=== PATIENT | female | born 1950 | race Two or more races ===

== ENCOUNTER 2023-01-07 08:55 | Day surgery (SDC) | payer MEDICARE, OTHER ==
[2023-01-07] VITALS (9 sets, daily range): BP systolic 165–207; BP diastolic 63–88
[~2023-01-07] VITALS: Ht 152.4 cm; Wt 56.4 kg
[2023-01-07 10:03] LABS: BASOPHILS % (AUTO) 0.3 % (0-1); EOSINOPHILS # (AUTO) 0.1 X10'3 (0-0.9); EOSINOPHILS % (AUTO) 1.3 % (0-6); HEMATOCRIT 36.8 % (35.0-45.0); HEMOGLOBIN 12.7 g/dl (12.0-16.0); LYMPHOCYTES # (AUTO) 1.1 X10'3 (1.1-4.8); LYMPHOCYTES % (AUTO) 25.4 % (21-51); MEAN CORPUSCULAR HEMOGLOBIN 33.1 PG (27.0-31.0); MEAN CORPUSCULAR HGB CONC 34.4 g/dL (33.0-36.5); MEAN CORPUSCULAR VOLUME 96.2 FL (78-98); MEAN PLATELET VOLUME 9.1 FL (7.4-10.4); MONOCYTES # (AUTO) 0.4 X10'3 (0-0.9); MONOCYTES % (AUTO) 9.2 % (2-12); NEUTROPHILS # (AUTO) 2.7 X10'3 (1.8-7.7); NEUTROPHILS % (AUTO) 63.8 % (42-75); PLATELET COUNT 231 X10'3 (140-440); RED BLOOD COUNT 3.83 X10'6 (4.20-5.60); RED CELL DISTRIBUTION WIDTH 13.4 % (11.5-14.5); WHITE BLOOD COUNT 4.2 X10'3 (4.5-11.0)
[2023-01-07] MEDS ORDERED: PIOG30TA71 PO (10:03)
[2023-01-07] MEDS ORDERED: OXYC-145 PO (10:03)
[2023-01-07] MEDS ORDERED: LEVO100T PO (10:03)
[2023-01-07] MEDS ORDERED: LISI40TA13 PO (10:03)
[2023-01-07] MEDS ORDERED: METF-438 PO (10:03)
[2023-01-07] MEDS ORDERED: IBUP-1985 PO (10:03)
[2023-01-07] MEDS ORDERED: normal saline 1000ml 1,000 ML IV SCH (10:20)
[2023-01-07] MEDS ORDERED: LIDOcaine 1% 30ml preserv. free vial ONE (10:59)
[2023-01-07] MEDS ORDERED: fentaNYL/PF 50MCG/1 ML 2ML syringe ONE (11:17)
[2023-01-07] MEDS ORDERED: midazolam 1 mg/ML 2ml injection ONE (11:17)
== END 2023-01-07 13:15 | disposition home or self-care (01) ==
LOC: SSTAY O 08:55
PROVIDERS: ATTEND Radiology Vascular & Interventional Radiology
DX: M79.89 Other specified soft tissue disorders (principal); C79.51 Secondary malignant neoplasm of bone; E11.9 Type 2 diabetes mellitus without complications; F41.8 Other specified anxiety disorders; F32.A Depression, unspecified; Z90.710 Acquired absence of both cervix and uterus; Z96.652 Presence of left artificial knee joint; Z98.890 Other specified postprocedural states; Z79.899 Other long term (current) drug therapy; Z79.84 Long term (current) use of oral hypoglycemic drugs; Z72.89 Other problems related to lifestyle; Z80.59 Family history of malignant neoplasm of other urinary tract organ
CPT/HCPCS: 36415; 62267; 77012; 82948; 85025; 85610; J2250; J3010; J3490; J7030; 49180; 88305; 99152; 99153; A4615